=== PATIENT | male | born 1955 | race Caucasian/White ===

== ENCOUNTER 2018-10-22 14:08 | Inpatient (IN) | payer OTHER, MEDICARE ==
[2018-10-22] MEDS ORDERED: ONDANSETRON 4 MG INJ IV (16:30)
[2018-10-22] MEDS ORDERED: BISACODYL 10 MG SUPP PR (16:30)
[2018-10-22] MEDS ORDERED: CEPASTAT LOZENGE MT (16:30)
[2018-10-22] MEDS: CEFAZOLIN 1 GM/50 ML (PMX) 50 ML IVPB ×2 (16:30→23:29)
[2018-10-22] MEDS ORDERED: NALOXONE (0.4 MG/ML) INJ IV (16:30)
[2018-10-22] MEDS ORDERED: OXYCODONE/ACETAMINOPHEN (10/325) TAB PO (16:30)
[2018-10-22] MEDS ORDERED: AL HYDROX/MG HYDROX/SIMETH 30 ML CUP PO (16:30)
[2018-10-22] MEDS ORDERED: DIPHENHYDRAMINE 50 MG INJ IV ×2 (16:30→17:00)
[2018-10-22] MEDS ORDERED: ACETAMINOPHEN 325 MG TAB PO (16:30)
[2018-10-22] MEDS ORDERED: DIPHENHYDRAMINE 25 MG CAP PO (16:30)
[2018-10-22] MEDS ORDERED: HYDROmorphONE 0.5 MG/0.5 ML SYG IV (16:30)
[2018-10-22] MEDS ORDERED: HEPARIN 1000 UNITS/ML 10 ML INJ (16:39)
[2018-10-22] MEDS ORDERED: METOCLOPRAMIDE 10 MG INJ IV (17:00)
[2018-10-22] MEDS ORDERED: ROCURONIUM 50 MG INJ ×2 (17:00→19:07)
[2018-10-22] MEDS ORDERED: LIDOCAINE 2% (SDV) 5 ML INJ (17:00)
[2018-10-22] MEDS ORDERED: hydrALAzine 20 MG INJ IV (17:00)
[2018-10-22] MEDS ORDERED: LABETALOL HCL 20MG INJ IV (17:00)
[2018-10-22] MEDS ORDERED: MIDAZOLAM 1 MG/ML 2 ML INJ (17:07)
[2018-10-22] MEDS: BUPIVACAINE 0.25%/EPI (SDV) 30 ML INJ (18:12)
[2018-10-22] MEDS: CA CHLORIDE 10% 10 ML SYRINGE (18:12)
[2018-10-22] MEDS: GELATIN SIZE 100 SPONGE (18:15)
[2018-10-22] MEDS: POLYMYXIN/BACITRACIN 1L IRRIG (18:16)
[2018-10-22] MEDS: THROMBIN 5000 UNIT VIAL (18:16)
[2018-10-22] MEDS ORDERED: ETOMIDATE 20 MG INJ (19:07)
[2018-10-22] MEDS ORDERED: NEOSTIGMINE 3 MG/3 ML SYRINGE (19:07)
[2018-10-22] MEDS ORDERED: PROPOFOL 20 ML (19:07)
[2018-10-22] MEDS ORDERED: GLYCOPYRROLATE 0.4 MG INJ (19:07)
[2018-10-22] MEDS ORDERED: CEFAZOLIN 1 GM INJ (19:08)
[2018-10-22] MEDS: MEPERIDINE 25 MG INJ IV (19:31)
[2018-10-22] MEDS: ONDANSETRON 4 MG INJ IV (19:31)
[2018-10-22] MEDS: HYDROmorphONE 0.2 MG/ML PCA IV (19:37)
[2018-10-22] MEDS: HYDROmorphONE 1 MG/5 ML IV SYRINGE IV ×3 (19:39→19:59)
[2018-10-22] MEDS: FENTAnyl 50 MCG/ML VIAL IV (20:05)
[2018-10-22] MEDS: CYCLOBENZAPRINE 10 MG TAB PO (21:32)
[2018-10-22] MEDS: GABAPENTIN 300 MG CAP PO (21:32)
[2018-10-22] MEDS: DOCUSATE SODIUM 100 MG CAP PO (21:32)
[2018-10-22] MEDS: ZOLPIDEM 5 MG TAB PO (23:16)
[2018-10-22] MEDS: D5W-0.45 NACL + KCL 20 MEQ 1,000 ML IV (23:26)
[2018-10-23] MEDS: HYDROmorphONE 0.2 MG/ML PCA IV ×2 (00:24→04:56)
[2018-10-23] MEDS: D5W-0.45 NACL + KCL 20 MEQ 1,000 ML IV ×2 (02:23→12:23)
[2018-10-23 05:14] LABS: ADD MAN DIFF? NO
[2018-10-23 05:17] LABS: BASOPHILS % 0.5 % (0.0-2.0); EOSINOPHILS # 0.1 10^3/ul (0.0-0.5); EOSINOPHILS % 0.8 % (0.0-7.0); HEMATOCRIT 37.7 % (42.0-52.0); HEMOGLOBIN 12.3 g/dl (14.0-18.0); LYMPHOCYTES # 1.5 10^3/ul (0.8-2.9); LYMPHOCYTES % 22.8 % (15.0-51.0); MEAN CORPUSCULAR HGB CONC 32.6 g/dl (32.0-37.0); MEAN PLATELET VOLUME 9.3 fl (7.4-10.4); MONOCYTE # 0.7 10^3/ul (0.3-0.9); MONOCYTES % 10.4 % (0.0-11.0); NEUTROPHIL # 4.3 10^3/ul (1.6-7.5); NEUTROPHILS % 65.2 % (39.0-77.0); PLATELET COUNT 177 10^3/UL (140-415); RED BLOOD COUNT 3.97 10^6/ul (4.70-6.10); RED CELL DISTRIBUTION WIDTH 13.3 % (11.5-14.5)
[2018-10-23 05:17] LABS: WHITE BLOOD COUNT 6.6 10^3/ul (4.8-10.8)
[2018-10-23 05:37] LABS: ANION GAP 7 (5-13); BLOOD UREA NITROGEN 11 mg/dl (7-20); CALCIUM 8.1 mg/dl (8.4-10.2); CARBON DIOXIDE 30 mmol/L (21-31); CHLORIDE 102 mmol/L (97-110); CREATININE 0.77 mg/dl (0.61-1.24); Estimated GFR > 60 mL/min (>60); GLUCOSE 112 mg/dl (70-220); MAGNESIUM 2.1 mg/dl (1.7-2.5); POTASSIUM 4.1 mmol/L (3.5-5.1); SODIUM 139 mmol/L (135-144)
[2018-10-23] MEDS: SERTRALINE 50 MG TAB PO (08:36)
[2018-10-23] MEDS: CEFAZOLIN 1 GM/50 ML (PMX) 50 ML IVPB (08:36)
[2018-10-23] MEDS: DOCUSATE SODIUM 100 MG CAP PO (08:36)
[2018-10-23] MEDS: OXYCODONE/ACETAMINOPHEN (10/325) TAB PO ×2 (08:52→10:21)
[2018-10-23] MEDS ORDERED: AMLODIPINE 5 MG TAB PO (21:00)
[2018-10-23] MEDS ORDERED: ATORVASTATIN 80 MG TAB PO (21:00)
[2018-10-23] MEDS ORDERED: LISINOPRIL 10 MG TAB PO (21:00)
[2018-10-23] MEDS ORDERED: GABAPENTIN 300 MG CAP PO (21:00)
== END 2018-10-23 12:55 | disposition home or self-care (01) | DRG 520 ==
LOC: REC 14:08 → MS1 20:35
PROC: 0SB20ZZ Excision of Lumbar Vertebral Disc, Open Approach (ICD-10-PCS; principal; 2018-10-22 16:30)
PROC: 01NB0ZZ Release Lumbar Nerve, Open Approach (ICD-10-PCS; 2018-10-22 16:30)
PROC: 4A11X4G Monitoring of Peripheral Nervous Electrical Activity, Intraoperative, External Approach (ICD-10-PCS; 2018-10-22 16:30)
DX: M51.16 Intervertebral disc disorders with radiculopathy, lumbar region (principal); I10 Essential (primary) hypertension; E78.5 Hyperlipidemia, unspecified; E78.00 Pure hypercholesterolemia, unspecified; F39 Unspecified mood [affective] disorder; F17.200 Nicotine dependence, unspecified, uncomplicated
CPT/HCPCS: 72100; 80048; 83735; 85025; 86999; 88304; 97116; 97161